=== PATIENT | female | born 1950 | race Caucasian/White ===

== ENCOUNTER 2016-11-25 17:11 | Inpatient (IN) | payer MEDICAID, MEDICARE ==
[2016-11-25] MEDS ORDERED: levoFLOXacin 750 mg in D5W 150 ML BAG IVPB STA (17:33)
[2016-11-25] MEDS ORDERED: Sodium Chloride 0.9% 500 ML IV STA (17:33)
[2016-11-25 17:36] VITALS: BMI 19.4
--- NOTE | 2016-11-25 17:39 | ED PDOC ---
Arrival/HPI - General Time Seen by Provider: 11/25/16 17:25 Historian: Patient - History of Present Illness Narrative History of Present Illness (Text): 11/25/16 17:25 Sally Deutsch is a 66 year old female, whose past medical history includes hypertension, who presents to the emergency department complaining of cough and subjective fevers for 5 days. Patient is visiting from [facility] and reportedly went to an urgent care center where she was diagnosed with pneumonia. Patient was directed to the emergency department for further evaluation. Patient describes her cough to be productive with yellow sputum and states that she also experiences left-sided chest pain which worsens with coughing. Patient denies any other complaints at this time. Time/Duration: < week Symptom Onset: Gradual Symptom Course: Unchanged Severity Level: Mild Activities at Onset: Light Context: Home Past Medical History - Provider Review Nursing Documentation Reviewed: Yes Family/Social History - Physician Review Nursing Documentation Reviewed: Yes Family/Social History: No Known Family HX Allergies/Home Meds Allergies/Adverse Reactions: Allergies No Known Allergies Allergy (Unverified 11/25/16 17:32) Home Medications: Home Meds Medication Instructions Recorded Confirmed Cyclobenzaprine [Flexeril] 10 mg PO DAILY 11/25/16 11/25/16 Gabapentin [Neurontin] 150 mg PO TID 11/25/16 11/25/16 Lisinopril [Zestril] 40 mg PO DAILY 11/25/16 11/25/16 Magnesium Oxide [Magnesium] 400 mg PO DAILY 11/25/16 11/25/16 Omeprazole 40 mg PO DAILY 11/25/16 11/25/16 Polyethylene Glycol 3350 [Gavilax] 17 gm PO DAILY 11/25/16 11/25/16 amLODIPine [Norvasc] 5 mg PO HS 11/25/16 11/25/16 hydrALAZINE [Apresoline] 50 mg PO TID 11/25/16 11/25/16 rOPINIRole [Requip] 0.5 mg PO HS 11/25/16 11/25/16 traZODone [Desyrel] 150 mg PO HS 11/25/16 11/25/16 Review of Systems - Physician Review All systems were reviewed & negative as marked: Yes - Review of Systems Constitutional: Fevers Eyes: absent: Vision Changes ENT: absent: Hearing Changes Respiratory: Cough, Sputum Cardiovascular: Chest Pain Gastrointestinal: absent: Abdominal Pain Genitourinary Female: absent: Dysuria Musculoskeletal: absent: Arthralgias Skin: absent: Rash Neurological: absent: Headache Endocrine: absent: Diaphoresis Hemo/Lymphatic: absent: Adenopathy Psychiatric: absent: Depression Physical Exam Vital Signs Reviewed: Yes Vital Signs Temp Pulse Resp BP Pulse Ox 11/25/16 21:18 98.9 F 82 20 140/85 99 11/25/16 20:05 83 20 136/84 100 11/25/16 17:52 95 H 18 147/75 98 11/25/16 17:31 98.8 F 95 H 23 147/75 93 L Temperature: Afebrile Blood Pressure: Hypertensive Pulse: Regular Respiratory Rate: Normal Appearance: Positive for: Well-Appearing, Non-Toxic, Comfortable Pain Distress: None Mental Status: Positive for: Alert and Oriented X 3 - Systems Exam Head: Present: Atraumatic, Normocephalic Pupils: Present: PERRL Extroacular Muscles: Present: EOMI Conjunctiva: Present: Normal Mouth: Present: Moist Mucous Membranes Neck: Present: Normal Range of Motion Respiratory/Chest: Present: Rhonchi (mild scattered rhonchi) Cardiovascular: Present: Regular Rate and Rhythm, Normal S1, S2. No: Murmurs Abdomen: Present: Normal Bowel Sounds. No: Tenderness, Distention, Peritoneal Signs Back: Present: Normal Inspection Upper Extremity: Present: Normal Inspection. No: Cyanosis, Edema Lower Extremity: Present: Normal Inspection. No: Edema Neurological: Present: GCS=15, CN II-XII Intact, Speech Normal Skin: Present: Warm, Dry, Normal Color. No: Rashes Psychiatric: Present: Alert, Oriented x 3, Normal Insight, Normal Concentration Medical Decision Making ED Course and Treatment: 11/25/16 17:40 Impression: 66 year old female complaining of productive cough with yellow sputum, subjective fevers and posttussive chest pain for 5 days. Differential Diagnosis included but are not limited to: Plan: -- EKG -- Chest X-ray -- VBG and Blood Culture -- Labs -- Levaquin and IV fluids -- Reassess and disposition Progress Notes: EKG: Ordered, reviewed, and independently interpreted the EKG. Rate : 96 BPM Rhythm : NSR Interpretation : Non-specific T wave changes. Comparison : No previous EKG for comparison. - Lab Interpretations Microbiology Results: Microbiology Results 11/25/16 19:40 Blood Blood Culture - Preliminary NO GROWTH AFTER 24 HOURS Lab Results: 11/25/16 17:56 11/25/16 17:56 Lab Results 11/25/16 19:42: pCO2 36, pO2 140.0 H, HCO3 27.4, ABG pH 7.49 H, ABG Total CO2 28.5 H, ABG O2 Saturation 97.7, ABG Base Excess 4.1 H, ABG Potassium 3.4 L, Glucose 110 H, Lactate 0.5 L, FiO2 35.0, Inspiratory BiPAP 12, Sodium 135.0, Chloride 102.0, Arterial Blood Potassium 3.4 L 11/25/16 18:24: Urine Color Yellow, Urine Appearance Sl cloudy, Urine pH 7.0, Ur Specific [place] 1.010, Urine Protein Negative, Urine Glucose (UA) Negative, Urine Ketones Negative, Urine Blood Negative, Urine Nitrate Negative, Urine Bilirubin Negative, Urine Urobilinogen 0.2, Ur Leukocyte Esterase Large H, Urine RBC 0 - 2, Urine WBC 2 - 5, Ur Epithelial Cells 0 - 2 11/25/16 18:02: pO2 89 H, VBG pH 7.21 L, VBG pCO2 67.0 H*, VBG HCO3 26.8, VBG Total CO2 28.9 H, VBG O2 Sat (Calc) 96.6 H, VBG Base Excess -2.1 L, VBG Potassium 19.1 H*, Glucose 139 H, Lactate 1.5, FiO2 21.0, Sodium 126.0 L, Chloride 97.0 L, Venous Blood Potassium 19.1 H* 11/25/16 17:56: Sodium 134, Potassium 3.6, Chloride 95, Carbon Dioxide 28, Anion Gap 15, BUN 10, Creatinine 0.7, Est GFR ( Amer) > 60, Est GFR (Non- Af Amer) > 60, Random Glucose 129 H, Calcium 8.8, Magnesium 1.8, Total Bilirubin 0.6, AST 28, ALT 38, Alkaline Phosphatase 74, Lactate Dehydrogenase 480, Total Creatine Kinase 365 H, CK-MB (CK-2) 0.69, CK-MB (CK-2) % Pending, Troponin I < 0.01, NT-Pro-B Natriuret Pep 264, Total Protein 6.4, Albumin 3.5, Globulin 2.9, Albumin/Globulin Ratio 1.2 11/25/16 17:56: PT 11.4, INR 1.06, APTT 31.3 H 11/25/16 17:56: WBC 10.8, RBC 3.27 L, Hgb 10.6 L, Hct 31.3 L, MCV 95.7, MCH 32.4 , MCHC 33.9, RDW 11.7, Plt Count 280, MPV 8.2, Gran % 78.0 H, Lymph % (Auto) 9.7 L, [place] % (Auto) 11.2 H, Eos % (Auto) 0.9 L, Baso % (Auto) 0.2, Gran # 8.40 H, Lymph # 1.0 L, [place] # 1.2 H, Eos # 0.1, Baso # 0.02 - RAD Interpretation Radiology Orders: 11/25/16 17:33 CHEST PORTABLE [RAD] Stat - Medication Orders Current Medication Orders: Acetylcysteine (Acetylcysteine 20%) 4 ml IH [id number] [facility] Last Admin: 11/27/16 07:30 Dose: 4 ml Clonidine HCl (Catapres) 0.1 mg PO Q6H PRN PRN Reason: Systolic Blood Pressure Cyclobenzaprine HCl (Flexeril) 10 mg PO DAILY PRN PRN Reason: Muscle spasm Doxycycline Hyclate (Doryx) 100 mg PO Q12 MICHELL PRN Reason: Protocol Stop: 12/06/16 22:01 Gabapentin (Neurontin) 200 mg PO TID [facility] PRN Reason: Protocol Last Admin: 11/27/16 11:23 Dose: 200 mg Guaifenesin (Mucinex La) 600 mg PO BID [facility] Last Admin: 11/27/16 11:20 Dose: 600 mg Ceftriaxone Sodium (Rocephin 1 Gram Ivpb) 1 gm in 100 mls @ 100 mls/hr IVPB DAILY [facility] PRN Reason: Protocol Last Admin: 11/26/16 11:52 Dose: 100 mls/hr Iron Sucrose 200 mg/ Sodium (Chloride) 110 mls @ 110 mls/hr IVPB DAILY [facility] Stop: 11/29/16 10:59 Levalbuterol HCl (Xopenex) 0.63 mg IH [id number] [facility] Last Admin: 11/27/16 07:30 Dose: 0.63 mg Magnesium Oxide (Mag-Ox) 400 mg PO DAILY [facility] Last Admin: 11/27/16 11:20 Dose: 400 mg Pantoprazole Sodium (Protonix Ec Tab) 40 mg PO 0600 [facility] Last Admin: 11/27/16 05:19 Dose: 40 mg Polyethylene Glycol (Miralax) 17 gm PO DAILY [facility] Last Admin: 11/27/16 11:21 Dose: Not Given Non-Admin Reason: Patient Refused Ropinirole HCl (Requip) 0.5 mg PO [facility] Last Admin: 11/26/16 21:38 Dose: 0.5 mg Trazodone HCl (Desyrel) 150 mg PO [facility] Last Admin: 11/26/16 21:38 Dose: 150 mg Discontinued Medications Acetylcysteine (Acetylcysteine 20%) 4 ml IH [id number] SCH Albuterol/Ipratropium (Duoneb 3 Mg/0.5 Mg (3 Ml) Ud) 3 ml IH STAT STA Stop: 11/26/16 00:36 Last Admin: 11/26/16 01:05 Dose: 3 ml Amlodipine Besylate (Norvasc) 5 mg PO STAT STA Stop: 11/26/16 00:17 Last Admin: 11/26/16 00:43 Dose: 5 mg Barium Sulfate (Readi-Cat 2) Confirm Administered Dose 900 ml PO .STK-MED ONE Stop: 11/26/16 12:18 Cyclobenzaprine HCl (Flexeril) 10 mg PO DAILY [facility] Guaifenesin (Robitussin) 200 mg PO Q4H [facility] Last Admin: 11/26/16 11:01 Dose: 200 mg Guaifenesin/Dextromethorphan (Robitussin Dm) 10 ml PO Q6H PRN PRN Reason: Cough Last Admin: 11/26/16 00:46 Dose: 10 ml Hydralazine HCl (Apresoline) 50 mg PO TID [facility] Last Admin: 11/26/16 10:59 Dose: Hydralazine HCl (Apresoline) 50 mg PO STAT STA Stop: 11/26/16 00:18 Last Admin: 11/26/16 00:43 Dose: 50 mg Sodium Chloride (Sodium Chloride 0.9%) 500 mls @ 999 mls/hr IV .Q31M STA Stop: 11/25/16 18:03 Last Admin: 11/25/16 17:45 Dose: 999 mls/hr Doxycycline Hyclate 100 mg/ (Sodium Chloride) 100 mls @ 100 mls/hr IVPB Q12 [facility] PRN Reason: Protocol Last Admin: 11/27/16 11:27 Dose: 100 mls/hr Iron Sucrose 200 mg/ Sodium (Chloride) 110 mls @ 110 mls/hr IVPB ONCE MICHELL Stop: 11/28/16 12:44 Last Admin: 11/26/16 15:31 Dose: 110 mls/hr Sodium Chloride (Sodium Chloride 0.9%) 1,000 mls @ 100 mls/hr IV .Q10H MICHELL Stop: 11/27/16 07:44 Last Admin: 11/26/16 23:08 Dose: 100 mls/hr Iohexol (Omnipaque 350 100 Ml) Confirm Administered Dose 350 mg .ROUTE .STK-MED ONE Stop: 11/25/16 21:22 Iohexol (Omnipaque 350 100 Ml) Confirm Administered Dose 350 mg .ROUTE .STK-MED ONE Stop: 11/26/16 15:59 Levalbuterol HCl (Xopenex) 0.63 mg IH [id number] [facility] Levofloxacin/Dextrose (Levaquin 750mg) 750 mg IVPB STAT STA Stop: 11/25/16 17:34 Last Admin: 11/25/16 17:47 Dose: 750 mg Lisinopril (Zestril) 40 mg PO DAILY [facility] Last Admin: 11/26/16 11:02 Dose: Trazodone HCl (Desyrel) 150 mg PO STAT STA Stop: 11/26/16 00:15 Last Admin: 11/26/16 00:42 Dose: 150 mg - Scribe Statement The provider has reviewed the documentation as recorded by the Heather Deutsch Provider Scribe Attestation: All medical record entries made by the Alokibasaf were at my direction and personally dictated by me. I have reviewed the chart and agree that the record accurately reflects my personal performance of the history, physical exam, medical decision making, and the department course for this patient. I have also personally directed, reviewed, and agree with the discharge instructions and disposition. Disposition/Present on Arrival - Present on Arrival Any Indicators Present on Arrival: No - Disposition Have Diagnosis and Disposition been Completed?: Yes Diagnosis: Pneumonia, Chest pain, Abnormal EKG, Hypercarbia Disposition: HOSPITALIZED Disposition Time: 08:00 Condition: FAIR
[2016-11-25 18:04] LABS: BASO # 0.02 K/mm3 (0.0-2.0); BASO % 0.2 % (0.0-3.0); EOS # 0.1 (0.0-0.7); EOS % 0.9 % (1.5-5.0); GRAN # 8.4 (1.4-6.5); HEMATOCRIT 31.3 % (36.0-48.0); LYMPH % 9.7 % (22.0-35.0); MEAN CELL VOLUME 95.7 fl (80.0-105.0); MEAN CORPUSCULAR HEMOGLOBIN 32.4 pg (25.0-35.0); MEAN CORPUSCULAR HGB CONC 33.9 g/dl (31.0-37.0); MEAN PLATELET VOLUME 8.2 fl (7.0-11.0); MONO # 1.2 (0.1-0.6); MONO % 11.2 % (1.0-6.0); RED CELL DISTRIBUTION WIDTH 11.7 % (11.5-14.5); WHITE BLOOD COUNT 10.8 10^3/ul (4.5-11.0)
[2016-11-25 18:08] LABS: VENOUS BLOOD GAS BASE EXCESS -2.1 mmol/L (0.0-2.0); VENOUS BLOOD PH 7.21 (7.32-7.43)
[2016-11-25 18:15] LABS: INR 1.06 (0.93-1.08); PARTIAL THROMBOPLASTIN TIME 31.3 Seconds (23.7-30.8)
[2016-11-25 18:24] LABS: ALB/GLOB RATIO 1.2 (1.1-1.8); ALKALINE PHOSPHATASE 74 U/L (38-133); ALT/SGPT 38 U/L (7-56); AST/SGOT 28 U/L (15-39); BILIRUBIN,TOTAL 0.6 mg/dL (0.2-1.3); BLOOD UREA NITROGEN 10 mg/dL (7-21); CALCIUM 8.8 mg/dL (8.4-10.5); CARBON DIOXIDE 28 mmol/L (21-33); CHLORIDE 95 mmol/L (95-110); GFR AFRICAN-AMERICAN > 60; GLUCOSE,RANDOM 129 mg/dL (70-110); MAGNESIUM 1.8 mg/dL (1.7-2.2); POTASSIUM 3.6 mmol/L (3.6-5.0); SODIUM 134 mmol/L (132-148); TOTAL PROTEIN 6.4 g/dL (5.8-8.3)
[2016-11-25 18:36] LABS: URINE BILIRUBIN NEGATIVE (NEGATIVE); URINE BLOOD NEGATIVE (NEGATIVE); URINE GLUCOSE (UA) NEGATIVE (NEGATIVE); URINE KETONE NEGATIVE (NEGATIVE); URINE LEUKOCYTE ESTERASE LARGE Leu/uL (NEGATIVE); URINE PROTEIN NEGATIVE mg/dL (<30 mg/dL); URINE UROBILINOGEN 0.2 E.U./dL (<1 E.U./dL)
[2016-11-25 18:38] LABS: URINE APPEARANCE SL CLOUDY (CLEAR); URINE COLOR YELLOW (YELLOW)
[2016-11-25 18:46] LABS: URINE RBC 0 - 2 /hpf (0-2)
[2016-11-25 18:47] LABS: URINE EPITHELIAL CELLS 0 - 2 /hpf (0-5)
[2016-11-25 18:52] LABS: TROPONIN I < 0.01 ng/mL
[2016-11-25 19:45] LABS: ARTERIAL BLOOD GAS HCO3 27.4 mmol/L (21-28); ARTERIAL BLOOD GAS PH 7.49 (7.35-7.45)
[2016-11-25] MEDS ORDERED: Iohexol 350 MG/100 ML VIAL ONE (21:21)
--- NOTE | 2016-11-25 21:27 | CP.PCM.HP ---
<Gladys Cedeno - Last Filed: 11/26/16 01:50> History of Present Illness - History of Present Illness History of Present Illness: Gladys Cedeno DO, PGY-1, Night Float CC: Cough and left rib pain HPI: 66 year old female with a past medical of hypertension, lumbar stenosis, osteoporosis, and GERD who presents with 1 week of a productive cough, chills, subjective fever, and left subcostal pain that is worsened with cough and inspiration. She also complains of some dyspnea, particularly worsening in the last 2.5 days. She recently returned from a wedding in [facility]. She went to an urgent care for her symptoms. After evaluating her and taking a chest x-ray she was told to go to the ED. She denies any sick contact. During my evaluation the patient was on BIPAP, and thus most, if not all of the history was acquired from the her sister at the bedside. The sister is an ICU nurse. PMD: None PMH: Hypertension, Hyperlipidemia, Osteoporosis, Lumbar stenosis, and GERD PSH: Appendectomy in 1984 FH: non-contributory Social: Former smoker-states she smoked in the 80s, denies alcohol or illicit drug use Travel history: [facility] at wedding, was around many people, young and old Present on Admission - Present on Admission Any Indicators Present on Admission: No Review of Systems - Constitutional Constitutional: Chills. absent: Headache, Weakness - EENT Eyes: absent: Change in Vision, Floaters, Loss of Peripheral Vision Ears: absent: Decreased Hearing, Abnormal Hearing, Dizziness Nose/Mouth/Throat: Dry Mouth, Hoarsness. absent: Sinus Pain - Cardiovascular Cardiovascular: As Per HPI - Gastrointestinal Gastrointestinal: absent: Belching, Bloating, Dysphagia - Genitourinary Genitourinary: absent: Change in Urinary Stream, Dysuria, Hematuria - Musculoskeletal Musculoskeletal: absent: Limited Range of Motion, Muscle Weakness - Integumentary Integumentary: absent: Furuncle, New Lesions, Photosensitivity - Neurological Neurological: absent: Abnormal Gait, Disequilibrium, Headaches, Paresthesias - Psychiatric Psychiatric: absent: Change in Appetite, Confusion, Hopelessness - Endocrine Endocrine: absent: Change in Libido, Deepening of Voice, Heat Intolorance - Hematologic/Lymphatic Hematologic: absent: Easy Bleeding, Easy Bruising Past Patient History - Past Social History Smoking Status: Never Smoked - CARDIAC Hx Hypertension: Yes - PULMONARY Hx Respiratory Disorders: No - NEUROLOGICAL Hx Neurological Disorder: No - HEENT Hx HEENT Problems: No - RENAL Hx Chronic Kidney Disease: No - ENDOCRINE/METABOLIC Hx Endocrine Disorders: No - HEMATOLOGICAL/ONCOLOGICAL Hx Blood Disorders: No - INTEGUMENTARY Hx Dermatological Problems: No - MUSCULOSKELETAL/RHEUMATOLOGICAL Hx Musculoskeletal Disorders: No - GASTROINTESTINAL Hx Gastrointestinal Disorders: No - GENITOURINARY/GYNECOLOGICAL Hx Genitourinary Disorders: No - PSYCHIATRIC Hx Psychophysiologic Disorder: No Hx Substance Use: No - SURGICAL HISTORY Hx Surgeries: No - ANESTHESIA Hx Anesthesia: No Hx Anesthesia Reactions: No Hx Malignant Hyperthermia: No Meds Allergies/Adverse Reactions: Allergies Allergy/AdvReac Type Severity Reaction Status Date / Time No Known Allergies Allergy Unverified 11/25/16 17:32 Physical Exam - Constitutional Appears: Non-toxic, No Acute Distress - Head Exam Head Exam: ATRAUMATIC, NORMOCEPHALIC - Eye Exam Eye Exam: EOMI, Normal appearance - ENT Exam ENT Exam: Mucous Membranes Moist Additional comments: posterior pharynx shows mild erythema, with vascular marking, no exudate - Neck Exam Neck exam: Positive for: Normal Inspection, Tenderness. Negative for: Lymphadenopathy, Meningismus, Thyromegaly Additional comments: left cervical region - Respiratory Exam Respiratory Exam: Clear to Auscultation Bilateral. absent: Chest Wall Tenderness, Respiratory Distress Additional comments: tachypnea, with manual compression of left anterior lower rib cage, patient reports decreased pain in the area with deep inspiration. no chest wall tenderness - Cardiovascular Exam Cardiovascular Exam: RRR, +S1, +S2 - GI/Abdominal Exam GI & Abdominal Exam: Normal Bowel Sounds, Soft. absent: Guarding, Rebound, Rigid - Extremities Exam Extremities exam: Positive for: normal capillary refill, pedal pulses present. Negative for: calf tenderness, pedal edema - Back Exam Back exam: absent: CVA tenderness (L), CVA tenderness (R) Results - Vital Signs Recent Vital Signs: Last Vital Signs Temp 98.9 F 11/25/16 21:18 Pulse 82 11/25/16 21:18 Resp 20 11/25/16 21:18 BP 140/85 11/25/16 21:18 Pulse Ox 99 11/25/16 21:18 - Labs Result Diagrams: 11/25/16 17:56 11/25/16 17:56 Assessment & Plan - Assessment and Plan (Free Text) Assessment: 66 year old female with a past medical history of hypertension, osteoporosis, GERD, lumbar stenosis, who recently returned from a trip to [facility] that presents to [facility] ED with 1 week of a productive cough, subjective cough, and pleuritic chest pain. She was evaluated at an urgent care and told to go to the ED for further evaluation and management of a pneumonia. Plan: 1) CAP/atypical pneumonia, r/o PE - One view Chest X-ray pending - CT per PE protocol impression: No PE; nodular interstitial thickening and consolidation within the anterior and inferior segments of the DEVIN and bilateral apices; Small left sided pleural effusion with adjacent compressive atelectasis. -Blood culture, urine culture, and sputum cultures ordered - In ED one dose of Levoquin was administered. - Rocephin and Doxycycline were started empirically for CAP - Duonebs q4-6h PRN for SOB - Robitussin for cough - Influenza A & B ordered - Urine Legionella and S. pneumo antigen ordered 2) Hypertension: - C/W Hydralazine 50 mg TID, Lisinopril 40 mg, and Amlodipine 5 3) Lumbar stenosis with spasticity - C/W home medication Gabapentin 200 mg TID - Ropinorole, Flexeril PRN 4) Occult UTI - Leukocyte esterase positive - Patient is already being given Rocephin 5) DVT/GI Prophylaxis: SCD/Protonix 40 mg - Date & Time Date: 11/26/16 Time: 01:58 <Maco Rizo P - Last Filed: 11/26/16 08:30> Results - Vital Signs Recent Vital Signs: Last Vital Signs Temp 98.7 F 11/26/16 06:00 Pulse 78 11/26/16 06:00 Resp 20 11/26/16 06:00 BP 101/47 L 11/26/16 06:00 Pulse Ox 97 11/26/16 06:00 - Labs Result Diagrams: 11/26/16 05:30 11/25/16 17:56 Labs: Laboratory Results - last 24 hr 11/26/16 11/26/16 02:25 05:30 WBC 9.9 RBC 3.13 L Hgb 10.5 L Hct 30.0 L MCV 95.8 MCH 33.5 MCHC 35.0 RDW 12.0 Plt Count 281 MPV 8.2 Gran % 78.1 H Lymph % (Auto) 11.4 L Nicholas % (Auto) 9.6 H Eos % (Auto) 0.6 L Baso % (Auto) 0.3 Gran # 7.72 H Lymph # 1.1 L Nicholas # 1.0 H Eos # 0.1 Baso # 0.03 Influenza Typ A,B (EIA) Negative for flu a/b Attending/Attestation - Attestation I have personally seen and examined this patient.: Yes I have fully participated in the care of the patient.: Yes I have reviewed all pertinent clinical information: Yes Notes (Text): Patient has b/l multilobar PNA, left side cp is pleuritic in nature. Recent travel to [facility]. Clinically not decompenseated. Plan IV rocephin, doxy, neb treatment, urine legionella ag.
--- NOTE | 2016-11-25 22:43 | CT ---
EXAM: CT Angiography Chest With Intravenous Contrast CLINICAL HISTORY: 66 years old, female; Pain; Chest pain; Additional info: Pleuritic pain, tachypnea TECHNIQUE: Axial computed tomographic angiography images of the chest with intravenous contrast using pulmonary embolism protocol. All CT scans at this facility use one or more dose reduction techniques, viz.: automated exposure control; ma/kV adjustment per patient size (including targeted exams where dose is matched to indication; i.e. head); or iterative reconstruction technique. MIP reconstructed images were created and reviewed. Coronal and sagittal reformatted images were created and reviewed. CONTRAST: 96 mL of OMNI 350 administered intravenously. COMPARISON: DX - CHEST PORTABLE 11/25/2016 5:52:14 PM FINDINGS: Pulmonary arteries: No pulmonary embolism. Aorta: No thoracic aortic aneurysm. Lungs: Nodular interstitial thickening and consolidation are identified bilaterally, specifically within the anterior inferior segment of the left upper lobe and in the bilateral apices. A small left-sided pleural effusion is identified, with adjacent compressive atelectasis. Pleural spaces: As above. Heart: The heart is enlarged, without significant pericardial effusion. No evidence of right heart dysfunction. Bones: No acute fracture. Lymph nodes: No pathologically enlarged lymph nodes. IMPRESSION: No pulmonary embolism. Nodular interstitial thickening and consolidation within the anterior inferior segment of the left upper lobe and the bilateral apices. Small left-sided pleural effusion with adjacent compressive atelectasis.
[2016-11-26] MEDS ORDERED: Albuterol-Ipratrop 3 mg / 0.5 (3 ml) UD IH STA (00:35)
[2016-11-26] MEDS ORDERED: guaiFENesin DM 200 mg-20 mg/10 ml UD PO PRN (00:37)
[2016-11-26] MEDS ORDERED: Albuterol-Ipratrop 3 mg / 0.5 (3 ml) UD IH PRN (00:37)
[2016-11-26] MEDS: Pantoprazole 40 mg EC Tab PO SCH (05:34)
[2016-11-26 06:36] LABS: BASO # 0.03 K/mm3 (0.0-2.0); BASO % 0.3 % (0.0-3.0); EOS # 0.1 (0.0-0.7); EOS % 0.6 % (1.5-5.0); GRAN # 7.72 (1.4-6.5); GRAN % 78.1 % (50.0-68.0); LYMPH # 1.1 (1.2-3.4); LYMPH % 11.4 % (22.0-35.0); MEAN CELL VOLUME 95.8 fl (80.0-105.0); MEAN CORPUSCULAR HEMOGLOBIN 33.5 pg (25.0-35.0); MEAN PLATELET VOLUME 8.2 fl (7.0-11.0); MONO % 9.6 % (1.0-6.0); WHITE BLOOD COUNT 9.9 10^3/ul (4.5-11.0)
--- NOTE | 2016-11-26 08:31 | RAD ---
HISTORY: cough COMPARISON: No prior. FINDINGS: LUNGS: No active pulmonary disease. PLEURA: No significant pleural effusion identified, no pneumothorax apparent. CARDIOVASCULAR: Mild cardiomegaly OSSEOUS STRUCTURES: No significant abnormalities. VISUALIZED UPPER ABDOMEN: Normal. OTHER FINDINGS: None. IMPRESSION: No active disease.
--- NOTE | 2016-11-26 09:16 | CP.PCM.PN ---
<Gerri Sheehan - Last Filed: 11/26/16 12:13> Subjective - Date & Time of Evaluation Date of Evaluation: 11/26/16 Time of Evaluation: 09:13 - Subjective Subjective: Medicine Progress Note for Karishma Cervantes PGY2 Patient seen and examined at bedside. As per nursing, there were no acute overnight events. Patient reports having cough with green mucus and L sided chest pain when she coughs. She denies SOB, fever, chills, constipation, n/v/d, numbness/tingling, dysuria or hematuria. Patient says she lives in [place] and sees a doctor regularly. She has no history of anemia. She says her stool is somewhat dark. No overt signs of bleeding. She had a colonoscopy in 2013 which was normal. She did have unintentional weight loss. She lost 7lbs in past 6 months. She is also seeing an ENT for dry throat on L side when she sleeps. She denies any cancer in her family history. Patient said she had the BCG vaccine. When she came from the [facility] in 2003, she had a sputum test to rule out TB to get her visa to come to the . The sputum was negative for TB. Objective - Vital Signs/Intake and Output Vital Signs (last 24 hours): Temp Pulse Resp BP Pulse Ox 98.7 F 78 20 101/47 L 97 11/26/16 06:00 11/26/16 06:00 11/26/16 06:00 11/26/16 06:00 11/26/16 06:00 Intake and Output: 11/26/16 11/26/16 06:59 18:59 Intake Total 300 Output Total 0 Balance 300 - Medications Medications: Current Medications Albuterol/Ipratropium (Duoneb 3 Mg/0.5 Mg (3 Ml) Ud) 3 ml IH [id number] PRN PRN Reason: Shortness of Breath Amlodipine Besylate (Norvasc) 5 mg PO HS MICHELL Cyclobenzaprine HCl (Flexeril) 10 mg PO DAILY MICHELL Gabapentin (Neurontin) 200 mg PO TID MICHELL PRN Reason: Protocol Guaifenesin/Dextromethorphan (Robitussin Dm) 10 ml PO Q6H PRN PRN Reason: Cough Last Admin: 11/26/16 00:46 Dose: 10 ml Hydralazine HCl (Apresoline) 50 mg PO TID COUNT INCLUDES THE [facility] Ceftriaxone Sodium (Rocephin 1 Gram Ivpb) 1 gm in 100 mls @ 100 mls/hr IVPB DAILY MICHELL PRN Reason: Protocol Doxycycline Hyclate 100 mg/ (Sodium Chloride) 100 mls @ 100 mls/hr IVPB Q12 MICHELL PRN Reason: Protocol Last Admin: 11/26/16 01:14 Dose: 100 mls/hr Lisinopril (Zestril) 40 mg PO DAILY MICHELL Magnesium Oxide (Mag-Ox) 400 mg PO DAILY MICHELL Pantoprazole Sodium (Protonix Ec Tab) 40 mg PO 0600 MICHELL Last Admin: 11/26/16 05:34 Dose: 40 mg Polyethylene Glycol (Miralax) 17 gm PO DAILY MICHELL Ropinirole HCl (Requip) 0.5 mg PO HS MICHELL Trazodone HCl (Desyrel) 150 mg PO HS MICHELL - Labs Labs: 11/26/16 05:30 PT 11.4 Seconds (9.9-11.8) 11/25/16 17:56 INR 1.06 (0.93-1.08) 11/25/16 17:56 APTT 31.3 Seconds (23.7-30.8) H 11/25/16 17:56 - Constitutional Appears: No Acute Distress - Head Exam Head Exam: ATRAUMATIC, NORMAL INSPECTION, NORMOCEPHALIC - Eye Exam Eye Exam: Normal appearance, PERRL Pupil Exam: NORMAL ACCOMODATION, PERRL - ENT Exam ENT Exam: Mucous Membranes Moist - Respiratory Exam Respiratory Exam: Clear to Ausculation Bilateral, NORMAL BREATHING PATTERN. absent: Rales, Rhonchi, Wheezes - Cardiovascular Exam Cardiovascular Exam: REGULAR RHYTHM, +S1, +S2. absent: Gallop, Rubs, Murmur - GI/Abdominal Exam GI & Abdominal Exam: Soft, Normal Bowel Sounds. absent: Rigid, Tenderness, Mass , Rebound - Extremities Exam Extremities Exam: Normal Inspection. absent: Calf Tenderness, Pedal Edema - Neurological Exam Neurological Exam: Alert, Awake, CN II-XII Intact, Oriented x3 - Psychiatric Exam Psychiatric exam: Normal Affect, Normal Mood - Skin Skin Exam: Dry, Intact, Normal Color, Warm Assessment and Plan - Assessment and Plan (Free Text) Assessment: This is a 66Y F with PMH of HTN, osteoporosis, GERD, lumbar stenosis, and sciatica who was admitted for pneumonia seen on CT chest. She is noted to have recent travel as well as anemia. Plan: 1. Pneumonia - CAP versus Atypical - Afebrile, no leukocytosis - CXR showed no active disease - CT chest showed no PE, consolidation within the anterior and inferior segments of DEVIN and bilateral apices - Blood culture pending, procal pending, lactate normal - Continue Rocephin and Doxy - Influenza negative, Legionella pending, S. Pneumo pending - ID consulted - Mucinex, Xopenex, Mucomyst 2. UTI - U/A positive for leuk esterase - afebrile, no leukocytosis, pt asymptomatic - awaiting urine culture - on Doxy and Rocephin 3. Anemia - Normocytic - check stool for occult blood - Iron studies show anemia of chronic disease - B12 and Folate pending - GI and Heme consulted 4. HTN - Pt noted to be hypotensive - d/c BP meds. Started NS@100 - Clonidine prn 5. Hx of Lumbar stenosis with sciatica - Continue home medications: Gabapentin, Requip, Flexeril prn GI ppx: Protonix DVT ppx: SCDs Case seen, discussed and reviewed with attending. Karishma Sheehan PGY2 <Jayden Ortega U - Last Filed: 12/22/16 21:06> Objective - Vital Signs/Intake and Output Vital Signs (last 24 hours): Temp Pulse Resp BP Pulse Ox 98 F 82 20 125/76 96 11/27/16 12:00 11/27/16 12:00 11/27/16 12:00 11/27/16 12:00 11/27/16 06:00 - Labs Labs: 11/27/16 06:00 11/27/16 06:00 PT 11.4 Seconds (9.9-11.8) 11/25/16 17:56 INR 1.06 (0.93-1.08) 11/25/16 17:56 APTT 31.3 Seconds (23.7-30.8) H 11/25/16 17:56 Attending/Attestation - Attestation I have personally seen and examined this patient.: Yes I have fully participated in the care of the patient.: Yes I have reviewed all pertinent clinical information, including history, physical exam and plan: Yes
[2016-11-26 09:20] LABS: IRON 32 ug/dL (45-180)
[2016-11-26 09:25] LABS: TROPONIN I < 0.01 ng/mL
[2016-11-26] MEDS ORDERED: guaiFENesin 200 mg/10 ml Syrup UD PO SCH (10:15)
[2016-11-26] MEDS: Magnesium Oxide 400 mg Tab UD PO SCH (11:00)
[2016-11-26] MEDS: POLYETHYLENE GLYCOL 3350 17 GM/Dose PACKET PO SCH (11:03)
[2016-11-26] MEDS: cefTRIAXone 1 gm 1 GM/100 ML BAG IVPB SCH (11:52)
[2016-11-26] MEDS: Sodium Chloride 0.9% 1,000 ML IV SCH ×2 (11:55→23:08)
[2016-11-26] MEDS ORDERED: Barium Sulfate Susp 2.1% w/v, 2.0% w/w 450 mL Bottle PO ONE (12:17)
[2016-11-26 12:57] LABS: FOLATE > 20.0 ng/mL
[2016-11-26] MEDS: Levalbuterol 0.63 MG/3 ML Inhal Soln UD IH SCH ×3 (13:12→20:05)
[2016-11-26] MEDS: Acetylcysteine 20% Inhal Soln (4ml) IH SCH ×3 (13:14→20:05)
[2016-11-26] MEDS ORDERED: Levalbuterol 0.63 MG/3 ML Inhal Soln UD IH SCH (14:00)
[2016-11-26] MEDS ORDERED: Acetylcysteine 20% Inhal Soln (4ml) IH SCH (14:00)
[2016-11-26] MEDS: guaiFENesin 600 mg ER Tab PO SCH ×2 (15:14→18:06)
--- NOTE | 2016-11-26 15:43 | CARD ---
APPROVED REPORT EKG Measurement Heart [id number] [place] [id number] <Conclusion> Normal sinus rhythm RBBB T wave abnormality, consider anterior ischemia Abnormal ECG
[2016-11-26] MEDS ORDERED: Iohexol 350 MG/100 ML VIAL ONE (15:58)
--- NOTE | 2016-11-26 16:50 | CT ---
PROCEDURE: CT Abdomen and Pelvis with contrast HISTORY: r/o malignancy COMPARISON: CT of the chest 11/25/2016 TECHNIQUE: Contrast dose: 100 cc of Omni 350 Radiation dose: Total exam DLP = 210 mGy-cm. This CT exam was performed using one or more of the following dose reduction techniques: Automated exposure control, adjustment of the mA and/or kV according to patient size, and/or use of iterative reconstruction technique. FINDINGS: LOWER THORAX: Bilateral infiltrates evaluated on yesterday's chest CT. LIVER: Unremarkable. No gross lesion or ductal dilatation. GALLBLADDER AND BILE DUCTS: Unremarkable. PANCREAS: Unremarkable. No gross lesion or ductal dilatation. SPLEEN: Unremarkable. ADRENALS: Unremarkable. No mass. KIDNEYS AND URETERS: Unremarkable. No hydronephrosis. No solid mass. VASCULATURE: Unremarkable. No aortic aneurysm. BOWEL: Unremarkable. No obstruction. No gross mural thickening. APPENDIX: Normal appendix. PERITONEUM: Unremarkable. No free fluid. No free air. LYMPH NODES: Unremarkable. No enlarged lymph nodes. BLADDER: Unremarkable. REPRODUCTIVE: Unremarkable. BONES: No acute fracture. OTHER FINDINGS: None. IMPRESSION: No evidence of intra-abdominal malignancy
--- NOTE | 2016-11-26 18:36 | PN ---
DATE: 11/26/2016 SUBJECTIVE: Patient is seen in room 268, bed 1. The patient is seen sitting up in the bed. The patient appears to be older looking than her stated age. The patient appears chronically ill. The patient appears to be pale. OBJECTIVE: VITAL SIGNS: The patient's vital signs reviewed. The patient's blood pressure is 98/64 on the blood pressure machine. Patient is afebrile at present. Telemetry shows sinus rhythm. Respiration 18-20, O2 sat is 95-97%. The patient's initial admission blood pressure was 140/74, down to 112/70, 118/74, down to 98/64. HEENT: Normocephalic, atraumatic. Examination shows pale conjunctivae. Anicteric sclerae. No oropharyngeal lesion. No neck rigidity. CHEST: Kyphosis. LUNGS: Shows positive rhonchi. Questionable crepitations at the bases and mid lung field posteriorly. CARDIOVASCULAR: Shows S1, S2, regular rhythm. ABDOMEN: Soft. Positive bowel sounds. GENITALIA: Female. RECTAL: Deferred. EXTREMITIES: Shows no pitting edema, no calf tenderness, no Homans' sign. MUSCULOSKELETAL: Shows a decreased muscle mass. VASCULAR: Palpable pulses PSYCHIATRIC: Not applicable. LABORATORY DATA AND IMAGING: The patient's diagnostic data reviewed as per the labs and the imaging. Please refer to the resident's progress note for further details. Diagnostic data reviewed and explained to the patient in layman's language. IMPRESSION AND PLAN: 1. Questionable bibasilar pneumonia versus questionable interstitial pneumonia. 2. Questionable and possible community-acquired pneumonia. 3. Cough. 4. Questionable bronchitis. 5. Hypotension. 6. Normocytic iron deficiency anemia. 7. History of hypertension, history of osteoporosis, history of appendectomy, history of osteoporosis. 8. Questionable history of insomnia. 9. Questionable history of neuropathy secondary to lumbar spinal stenosis. PLAN: At this time, the patient has been ordered repeat labs. The patient has been consulted with infectious disease, hematology and gastroenterology. The patient has been ordered a CT scan of the abdomen and pelvis with contrast. The patient's antihypertensive at this time is held. The patient will be given fluid for the next 24-48 hours to stabilize blood pressure. Once the patient's blood pressure is stabilized, we will resume her antihypertensive and maximize therapy. The patient will be ordered iron studies. The patient will be started on IV Venofer. The patient will be continued on bronchodilators. The patient will be continued on broad-spectrum IV antibiotics with infectious disease consultation, gastroenterology, hematology/oncology consultation ordered. The patient has been ordered out of bed to chair. Further management will be dependent upon the patient's clinical condition, hemodynamic status and as per the patient's response to therapeutic intervention as per the patient's diagnostic test results and as per recommendation by all the physician involved in the care of the patient. The patient has been explained about all the diagnostic test results, need for further management, need for further diagnostic and therapeutic intervention. All above explained and explained to the patient in layman's language. All questions concerned answered to the patient's satisfaction. Dictated and electronically signed, not read. Jayden Ortega MD MTDMacy
[2016-11-27 00:25] VITALS: O2SAT 96
[2016-11-27] MEDS: Acetylcysteine 20% Inhal Soln (4ml) IH SCH ×3 (02:15→13:48)
[2016-11-27] MEDS: Levalbuterol 0.63 MG/3 ML Inhal Soln UD IH SCH ×3 (02:15→13:48)
[2016-11-27] MEDS: Pantoprazole 40 mg EC Tab PO SCH (05:19)
[2016-11-27 06:56] LABS: BASO # 0.04 K/mm3 (0.0-2.0); BASO % 0.6 % (0.0-3.0); EOS # 0.2 (0.0-0.7); EOS % 2.9 % (1.5-5.0); GRAN # 4.98 (1.4-6.5); GRAN % 69.9 % (50.0-68.0); HEMATOCRIT 32.9 % (36.0-48.0); LYMPH # 1.2 (1.2-3.4); LYMPH % 16.2 % (22.0-35.0); MEAN CELL VOLUME 96.5 fl (80.0-105.0); MEAN CORPUSCULAR HEMOGLOBIN 32.8 pg (25.0-35.0); MEAN PLATELET VOLUME 8.1 fl (7.0-11.0); MONO # 0.7 (0.1-0.6); MONO % 10.4 % (1.0-6.0); RED CELL DISTRIBUTION WIDTH 11.9 % (11.5-14.5); WHITE BLOOD COUNT 7.1 10^3/ul (4.5-11.0)
[2016-11-27 07:05] LABS: ALB/GLOB RATIO 1.1 (1.1-1.8); ALKALINE PHOSPHATASE 82 U/L (38-133); ALT/SGPT 46 U/L (7-56); AST/SGOT 48 U/L (15-39); BILIRUBIN,TOTAL 0.4 mg/dL (0.2-1.3); BLOOD UREA NITROGEN 7 mg/dL (7-21); CALCIUM 9.2 mg/dL (8.4-10.5); CARBON DIOXIDE 28 mmol/L (21-33); CHLORIDE 100 mmol/L (98-107); GFR AFRICAN-AMERICAN > 60; GLUCOSE,RANDOM 104 mg/dL (70-110); POTASSIUM 4.1 mmol/L (3.6-5.0); SODIUM 139 mmol/L (132-148); TOTAL PROTEIN 7.2 g/dL (5.8-8.3)
[2016-11-27] MEDS: Magnesium Oxide 400 mg Tab UD PO SCH (11:20)
[2016-11-27] MEDS: guaiFENesin 600 mg ER Tab PO SCH (11:20)
[2016-11-27] MEDS: POLYETHYLENE GLYCOL 3350 17 GM/Dose PACKET PO SCH (11:21)
[2016-11-27] MEDS: cefTRIAXone 1 gm 1 GM/100 ML BAG IVPB SCH ×2 (11:21→12:35)
[2016-11-27 12:11] VITALS: BP 125/76; PULSE 82; RESP 20; TEMP 98
--- NOTE | 2016-11-27 16:04 | CON ---
HEMATOLOGY CONSULTATION CURRENT LOCATION: [place] [address], bed 1. REASON FOR CONSULTATION: Iron deficiency anemia. HISTORY OF PRESENT ILLNESS: This is a 66-year-old female with past medical history significant for hypertension, lumbar stenosis, osteoporosis and a history of GERD, who presented to the [facility] with a 1-week complaint of a productive cough, chills, subjective fever and left subcostal pain that worsen with inspiration and when she had episodes of coughing. She was at a wedding in [facility] and stated that the complaints began while she was there and continued on her journey back to [place] with her sister. Prior to this, she did not complain of exertional dyspnea or cough, but she did state that she has noticed a mild loss of weight along with loss of appetite leading up to her recent hospitalization. She had a CAT scan of the abdomen and pelvis completed yesterday that showed known bilateral infiltrate of both lungs, otherwise the other findings were unremarkable in this CAT scan. The CAT scan was completed with p.o. and IV contrast. On admission, she was noted to have a normocytic anemia with a hemoglobin of 10.6, hematocrit of 31.3 with an MCV of 95.7. On the , her hemoglobin slightly decreased to 10.5 with a hematocrit of 30 without a change in the MCV. She denies history of bright red blood per rectum, hematochezia or melena. She also denies any history of bloating, constipation or diarrhea and stated that her last colonoscopy was in [address] Andrea. She states at that time she was told that 2 polyps were found and removed, which were discovered to be benign. She states she has not had an endoscopy recently. Upon further analysis of her anemia, iron studies revealed iron deficiency anemia correlating with iron level of 32 and iron saturation level of 13%. She was started on IV Venofer. She has received 1 dose of it thus far and her repeat labs do show a respond with an increase of her hemoglobin today to 11.2, hematocrit 32.9. She denies history of blood transfusions as well as other familial blood disorders. PAST MEDICAL HISTORY: As per HPI. PAST SURGICAL HISTORY: She had an appendectomy in 1984. FAMILY HISTORY: Noncontributory. SOCIAL HISTORY: She was a former smoker, currently denies active smoking, alcohol or illicit drug use. ALLERGIES: NO KNOWN DRUG ALLERGIES. PHYSICAL EXAMINATION VITAL SIGNS: Today are temperature 98.9, heart rate 79, blood pressure 128/64, she is saturating 96% on room air. GENERAL: Alert, awake and oriented x3. Sitting up right in bed, eating breakfast without any notation of distress. HEENT: Normocephalic, atraumatic. Pupils reactive bilaterally. LUNGS: The patient does have a good inspiratory effort. There were positive bibasilar rhonchi, that were noted on expiration; otherwise, no evidence of wheezing. CARDIOPULMONARY: S1, S2, normal, regular rate and rhythm. ABDOMEN: Soft, nontender, nondistended. EXTREMITIES: No cyanosis, clubbing or edema. LABORATORY DATA: White blood cell count 7.1, hemoglobin 11.2, hematocrit 32.9, MCV 96.5, platelets count 321. Chemistry, sodium 139, potassium 4.1, chloride 100, bicarb 28, BUN 7, creatinine 0.7, glucose level 104. Serum iron level 32, TIBC 243, percent iron saturation 13. AST 48, ALT 46. PT 11.4, PTT 31.3, INR 1.06. ASSESSMENT AND PLAN: In summary, this is a 66-year-old female with past medical history as noted, currently she is admitted with new bibasilar pneumonia and is being treated with IV antibiotics. On this admission, she was also noted to be anemic consistent with iron deficiency anemia. She has been started on IV Venofer and after 1 dose has had an appropriate respond with an increase of her hemoglobin to 11.2. The patient states that she will be returning to [place] where she currently lives on Tuesday and will be following up with her physician there. I have recommended that she followup with her day camp counselor for possible repeat colonoscopy as well as possible endoscopy based on these recent findings of iron deficiency anemia. Fecal occult blood testing will also be completed. At this time, IV Venofer will be continued until goal hemoglobin of 12 has been reached. We thank you kindly for the consultation of this very pleasant patient. Maninder Amin MD
--- NOTE | 2016-11-27 22:15 | CON ---
DATE: 11/27/2016 The patient is seen earlier this morning in room 268, bed 1. CHIEF COMPLAINT: Cough and fever from several days. HISTORY OF PRESENT ILLNESS: This 66-year-old [place] female, who has been in this country now for some time with history of osteopenia and spinal stenosis and GERD and hypertension, was in a wedding in [facility], returned with fever and cough. The cough is productive, yellowish, associated with left-sided pleuritic chest pain. No abdominal pain, diarrhea, or constipation. No bright red blood per rectum. No melena. PAST MEDICAL HISTORY: Significant for hypertension, osteoporosis, spinal stenosis, and GERD. PAST SURGICAL HISTORY: Significant for appendectomy in 1984. ALLERGIES: The patient has no known allergies. SOCIAL HISTORY: She lives with her some. She is an ex-smoker; however, stopped smoking years ago, and other than the recent trip to [facility], she has not been in the [facility] for years. MEDICATIONS: At home include Neurontin and Flexeril and Vistaril and Apresoline and is on questionable doxycycline; although, she states she is not on it recently. PHYSICAL EXAMINATION GENERAL: She is in bed, appears weak, washed out. VITAL SIGNS: Temperature of 98, heart rate of 100 and it was 95 in the Emergency Room, respiratory rate of 18 and it was up to 23 in the Emergency Room on 24 of this month, blood pressure is 125/66. HEENT: Unremarkable. NECK: Supple. LUNGS: Decreased breath sounds. HEART: Normal S1 and S2. ABDOMEN: Soft, nontender. No rebound or guarding. LABORATORY DATA: Reveals a white count of 10.8, hemoglobin of 10, and platelets of 280 with 78% of granulocytosis. The patient does have a sed rate of 109. Coagulation reveals to be INR is 1.06, PTT is 31. Blood gases are noted and reviewed. Chemistries revealed the patient has a BUN of 10, creatinine of 0.7, and random glucose is 129, CK of 365 with a C-reactive protein of greater than 15, procalcitonin is 0.05. Urinalysis is noted and it reveals large leukocyte esterase; however, 2-5 wbc's, no protein, and no ketones is noted in urinalysis, and stool occult blood is negative. H. pylori is negative Haemophilus influenzae type A, B, influenzae A and B is negative, and urine for Legionella antigen is negative. Microbiology reveals negative blood cultures and negative urine cultures and the sputum is negative. Imaging reveals the patient had a chest x-ray, no active lung disease. The patient had an EKG, which showed a QTc of 477 and CAT scan of the chest is read as no pulmonary emboli, there is nodular interstitial thickening, consolidation are identified bilaterally, anteroinferior segment of the left upper lobe, and in bilateral apices, has a small left-sided pleural effusion. The patient also had a CAT scan of the abdomen and pelvis, which reveals no evidence of intra-abdominal malignancy, it was read by Dr. Aguilar Weems. Dr. Ortega's note is reviewed and review of orders reveals the patient has Dr. Ray on consult and Dr. Lopez in consult for the anemia, and the patient is on IV doxycycline and IV ceftriaxone. ASSESSMENT AND PLAN: A 66-year-old [place] female with hypertension, osteoporosis, high cholesterol, spinal stenosis, and gastroesophageal reflux disease, recent travel to [facility], presenting with tachycardia, dyspnea, infiltrate with sepsis with bilateral interstitial pneumonia with a normal procalcitonin, negative cultures; however, the patient does have anemia and elevated sed rate and C-reactive protein. We will order an ANCA vasculitis workup and glomerular basement membrane antibody. We will also order a QuantiFERON, and although there is not significant involvement of the renal involvement, Katlin's, Goodpasture workup because of elevated sed rate and C-reactive protein and negative cultures thus far and negative procalcitonin with procalcitonin of 0.05 with bacterial pneumonia, would recommend pulmonary consultation and anemia workup is pending. We will also order a hemoglobin A1c and continue ceftriaxone and change the doxycycline to p.o. Dr. Josi Alarcon's note is reviewed. We will order a TB workup also and vasculitis workup in addition to malignancy workup. She has had weight loss. Case discussed with Dr. Ortega. We will follow closely with you. Jewel Hassan MD
--- NOTE | 2016-11-29 09:22 | DS ---
LOCATION: The patient was seen in room #268, bed #1. HISTORY OF PRESENT ILLNESS: The patient is seen lying in the bed and the patient was made to sit up. The patient denies any cough, denies any fever, denies any nausea, denies any vomiting. Thirteen-system review was done which was negative. The patient states that she is feeling better since the time of admission. PHYSICAL EXAMINATION: VITAL SIGNS: The patient's vital signs reviewed. The patient is afebrile. Telemetry shows sinus rhythm. Blood pressure has improved yesterday. The patient's blood pressure was 98/64 and low 100 systolics. Now, the blood pressure is around 120s and 130 systolic and diastolic around 70s and 80s. O2 sat is mid to high 90s. Respirations is 20 to 22. GENERAL: The patient is seen lying in the bed. Overnight nurse's notes reviewed. HEAD: Examination normocephalic and atraumatic. HEENT EXAMINATION: Shows pinkish pale conjunctivae. Anicteric sclerae. No oropharyngeal lesion. The patient appears older than the stated age. No neck rigidity. CHEST: Examination symmetrical. LUNGS: Examination shows very faint rhonchi. No crackles, rales or wheezing. CARDIOVASCULAR Examination: S1, S2, regular rhythm. ABDOMEN: Soft. Positive bowel sounds. Nontender. No costovertebral angle tenderness. No hepatosplenomegaly. GENITALIA: Female. RECTAL: Examination is deferred. EXTREMITIES: Shows no pitting edema. No calf tenderness. No Homans' sign. NEUROLOGIC: The patient is alert, awake, oriented x3. Cranial nerves II-XII grossly intact. Gait examination is independent. VASCULAR EXAMINATION: Peripheral pulses. DIAGNOSTIC DATA: The patient's diagnostic data reviewed. Hemoglobin/hematocrit has gone up to 11.1 and 33. WBC count is normal. The patient's CAT scan of the abdomen and pelvis with oral and IV contrast reviewed. The patient was seen by Dr. Amin from Hematology/Oncology. The patient was seen by Dr. Hassan from infectious disease. He cleared the patient for discharge as the patient did not meet the CURB-65 score. IMPRESSION AND PLAN 1. Questionable community-acquired nodular interstitial infiltrate versus community-acquired pneumonia versus bronchitis. 2. Normocytic iron deficiency anemia. 3. History of hypertension. 4. Transient episodic hypotension. 5. Hypovolemia. 6. Iron-deficiency anemia. 7. History of questionable insomnia, on trazodone. 8. History of neuropathy and lumbar spinal stenosis. 9. History of appendectomy. 10. History of colonoscopy a few years ago. 11. Normocytic iron-deficiency anemia, etiology undetermined.. 1. Questionable bibasilar pneumonia versus questionable interstitial pneumonia. 2. Questionable and possible community-acquired pneumonia. 3. Cough. 4. Questionable bronchitis. 5. Hypotension. 6. Normocytic iron deficiency anemia. 7. History of hypertension, history of osteoporosis, history of appendectomy, history of osteoporosis. 8. Questionable history of insomnia. 9. Questionable history of neuropathy secondary to lumbar spinal stenosis. PLAN: At this time, the patient's management was discussed with infectious disease and hematology/oncology. The patient was cleared by infectious disease and hematology/oncology. The patient was advised outpatient followup with her PMD and hydrodynamics professor and branch customer service representative for further investigation into anemia. The patient was advised outpatient gastroenterology and hematology followup. The patient was advised elective EGD and colonoscopy and further investigations to the causes of anemia. The patient was discharged home on doxycycline 100 mg p.o. q. 12 hours. In addition, the patient is to resume all medication which the patient is taking at home as per the updated ambulatory orders. The patient was explained about the details of her diagnostic tests recommendation by infectious disease and hematology/oncology was explained to the patient. The patient was updated about all above layman's language. All questions concerned answered to the patient's satisfaction. Time spent in the entire discharge process 45 minutes. Dictated and electronically signed, not read. Jayden Ortega MD MTDMacy
== END 2016-11-27 16:10 | disposition home or self-care (01) | DRG 89 ==
LOC: ED 17:11 → ERH 20:22 → 2RNO 21:59
PROVIDERS: ADMIT Internal Medicine; ATTEND Internal Medicine
DX: J18.9 Pneumonia, unspecified organism (principal); N39.0 Urinary tract infection, site not specified; I95.9 Hypotension, unspecified; E86.1 Hypovolemia; Z68.1 Body mass index [BMI] 19.9 or less, adult; J40 Bronchitis, not specified as acute or chronic; D50.9 Iron deficiency anemia, unspecified; I10 Essential (primary) hypertension; G47.00 Insomnia, unspecified; M48.06 Spinal stenosis, lumbar region; G62.9 Polyneuropathy, unspecified; M81.0 Age-related osteoporosis without current pathological fracture; K21.9 Gastro-esophageal reflux disease without esophagitis; E78.5 Hyperlipidemia, unspecified; R63.4 Abnormal weight loss; M54.30 Sciatica, unspecified side; Z87.891 Personal history of nicotine dependence